=== PATIENT | female | born 1980 | race Caucasian/White ===

== ENCOUNTER 2016-12-08 08:57 | Emergency (ER) | payer OTHER ==
[2016-12-08] MEDS ORDERED: MORPHINE SULFATE 10 MG/ML SYRINGE IM STA (09:34)
--- NOTE | 2016-12-08 09:39 | ED ---
Back Pain HPI - General Chief Complaint: Back Pain/Injury Stated Complaint: back pain Time Seen by Provider: 12/08/16 09:07 Source: patient, RN notes reviewed Limitations: no limitations - History of Present Illness Initial Comments: Patient is a 36-year-old female since emergency room for evaluation of back pain. Patient states that she was working out about 3 days ago and slipped down about 20 wooden stairs in her apartment. Patient states she's been having increased back pain ever since. Patient states she has pain radiating from her neck always to her lower back. Patient states the pain is worse on the right side than her left. Patient also states having bilateral rib pain. Patient states she has pain when she takes a deep breath. Patient denies head trauma, loss of consciousness, nausea or vomiting. Patient denies numbness or tingling in extremities, saddle anesthesia or urinary or fecal incontinence. Patient denies any other injuries during incident. Patient states she's been taking ibuprofen and Robaxin with no relief of symptoms. Patient states symptoms have not been improving so she thought she should be evaluated. - Related Data Home Medications Medication Instructions Recorded Confirmed Albuterol Inhaler [Ventolin Hfa 2 puff INHALATION RT-TID PRN 11/13/15 09/29/16 Inhaler] risperiDONE [RisperDAL] 2 mg PO HS 03/03/16 09/29/16 Mirtazapine [Remeron] 45 mg PO HS 03/10/16 09/29/16 Budesonide/Formoterol Fumarate 2 puff INHALATION BID 09/29/16 09/29/16 [Symbicort 80-4.5 Mcg Inhaler] Previous Rx's Medication Instructions Recorded Mupirocin 2% Oint [Bactroban 2% 1 applic TOPICAL TID #22 gm 09/29/16 Oint] Permethrin 5% Cream [Elimite] 1 applic TOPICAL ONCE #60 gram 09/29/16 Azithromycin [Zithromax Z-pack] 250 mg PO DIRECTED #6 tab 12/08/16 HYDROcodone/APAP 5-325MG [[place] 1 tab PO Q6HR PRN #15 tab 12/08/16 5-325] Allergies Allergy/AdvReac Type Severity Reaction Status Date / Time naproxen [From Naprosyn] AdvReac Vomiting Verified 12/08/16 09:01 Review of Systems ROS Statement: Those systems with pertinent positive or pertinent negative responses have been documented in the HPI. ROS Other: All systems not noted in ROS Statement are negative. 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 insomnia anxiety panic disorder History of Any Multi-Drug Resistant Organisms: None Reported Past Surgical History: Breast Surgery, Tonsillectomy, Tubal Ligation Additional Past Surgical History / Comment(s): CYSTS REMOVED FROM LEFT OVARY, LAPROSCOPIC ectopic Past Anesthesia/Blood Transfusion Reactions: No Reported Reaction Past Psychological History: Anxiety, Bipolar, Depression, Panic Disorder Smoking Status: Current every day smoker Past Alcohol Use History: None Reported Past Drug Use History: None Reported Additional Drug Use History / Comment(s): Patient states that she uses MJ once every three months. - Past Family History Mother Additional Family Medical History / Comment(s): Depression. Father Additional Family Medical History / Comment(s): Alcoholism General Exam - General Exam Comments Initial Comments: Sitting in exam room, no acute distress. Limitations: no limitations General appearance: alert, in no apparent distress Head exam: Present: atraumatic, normocephalic, normal inspection Eye exam: Present: normal appearance ENT exam: Present: normal exam Neck exam: Present: normal inspection, tenderness (Cervical spine tenderness on palpation), full ROM Respiratory exam: Present: normal lung sounds bilaterally, chest wall tenderness (Pain on palpating over right and left lateral ribs). Absent: respiratory distress Cardiovascular Exam: Present: regular rate, normal rhythm, normal heart sounds Extremities exam: Present: normal inspection, full ROM, normal capillary refill. Absent: tenderness Back exam: Present: normal inspection, full ROM (Limited flexion and extension secondary to pain), paraspinal tenderness (Bilateral paraspinal tenderness on palpating from thoracic spine all the way to the lumbosacral area.), vertebral tenderness (Thoracic spine tenderness on palpation) Neurological exam: Present: alert, oriented X3, CN II-XII intact Psychiatric exam: Present: normal affect, normal mood Skin exam: Present: warm, dry, intact, normal color. Absent: rash Course Vital Signs 12/08/16 08:59 Temperature 97.8 F Pulse Rate 95 Respiratory 20 Rate Blood Pressure 131/75 O2 Sat by Pulse 98 Oximetry Medical Decision Making - Medical Decision Making Patient is a 36-year-old female presents emergency room for evaluation of back pain from fall. X-rays of cervical, thoracic and lumbosacral spine show no acute findings. Patient also complaining of bilateral rib pain. Chest x-ray shows evidence of left upper lobe pneumonia. Patient was placed on antibiotics and advised to follow-up with her primary care provider for reevaluation. Agreed to send patient home with pain medications. Advised patient to return for worsening symptoms. Patient states she understands everything that was discussed with her. Case discussed with Dr. Morrison. - Radiology Data Radiology results: report reviewed, image reviewed Disposition Clinical Impression: Left upper lobe pneumonia, Back pain, Fall Disposition: HOME SELF-CARE Condition: Good Instructions: Pneumonia (ED), Low Back Strain (ED) Additional Instructions: Continue taking her home medications as needed. Warm moist heat. Take [place] as needed for severe pain. Take antibiotics as directed. Please follow up with primary care provider in 24-48 hours for reevaluation of pneumonia and back pain. If any new symptom arises, symptoms worsen or fever develops, return to ER as soon as possible. Prescriptions: HYDROcodone/APAP 5-325MG [[place] 5-325] 1 tab PO Q6HR PRN #15 tab PRN Reason: Pain Azithromycin [Zithromax Z-pack] 250 mg PO DIRECTED #6 tab Referrals: None,Stated [Primary Care Provider] - 1-2 days Time of Disposition: 10:57
--- NOTE | 2016-12-08 10:37 | XR ---
EXAMINATION TYPE: PA chest and bilateral rib series DATE OF EXAM: 12/08/2016 10:25 AM COMPARISON: 10/19/2015 HISTORY: 36-year-old female with pain after fall 3 days ago FINDINGS: The cardiomediastinal silhouette, aorta, and pulmonary vasculature are within normal limits. There is focal airspace opacity in the left upper lobe. No pneumothorax or pleural effusion. No displaced rib fractures seen. Bilateral breast prostheses are present. IMPRESSION: 1. Focal infiltrate left upper lobe. Correlate for pneumonia. Follow-up after treatment to assess for clearance. 2. No displaced rib fracture seen. 3. Bilateral breast prostheses.
--- NOTE | 2016-12-08 10:41 | XR ---
EXAMINATION TYPE: 5 view cervical spine. 3 views thoracic spine. 5 views lumbar spine. DATE OF EXAM: 12/08/2016 10:24 AM COMPARISON: NONE HISTORY: 36-year-old female with pain after fall down stairs 3 days ago. FINDINGS: Cervical spine: There is straightening of the normal cervical lordosis. No predental space widening or prevertebral s oft tissue swelling. Normal alignment of the cervical spine. No bony spondylotic neuroforaminal narro wing on either side. No acute fracture seen. Normal odontoid view. Thoracic spine: 12 rib-bearing thoracic vertebral bodies. All pedicles are visualized. Vertebral body heights are pre served and alignment is maintained. Lumbar spine: 5 lumbar type vertebral bodies. No pars interarticularis defect seen. Small superior endplate Schmorl 's node of L2 vertebral body. Otherwise, vertebral body heights are preserved and alignment is mainta ined. IMPRESSION: 1. Cervical spine: Straightening of the normal cervical lordosis could be positional or secondary to muscle spasm. No acute osseous abnormality seen. 2. Thoracic spine: No vertebral compression collapse or malalignment. 3. Lumbar spine: Small Schmorl's node of the superior L2 endplate is of indeterminate age but probabl y chronic. Correlate for any pain at this level. Otherwise, no vertebral compression collapse or alon lignment.
[2016-12-08 11:08] VITALS: BP 117/67; PULSE 80; RESP 16; TEMP 97.6
== END 2016-12-08 11:07 | disposition home or self-care (01) ==
LOC: EC 08:57
DX: S39.012A Strain of muscle, fascia and tendon of lower back, initial encounter (principal); J18.9 Pneumonia, unspecified organism; M54.2 Cervicalgia; R07.81 Pleurodynia; M54.6 Pain in thoracic spine; J44.9 Chronic obstructive pulmonary disease, unspecified; J45.909 Unspecified asthma, uncomplicated; F41.0 Panic disorder [episodic paroxysmal anxiety]; F41.9 Anxiety disorder, unspecified; F31.9 Bipolar disorder, unspecified; F17.200 Nicotine dependence, unspecified, uncomplicated; Z90.89 Acquired absence of other organs; Z79.51 Long term (current) use of inhaled steroids; Z79.899 Other long term (current) drug therapy; Z88.6 Allergy status to analgesic agent; W10.9XXA Fall (on) (from) unspecified stairs and steps, initial encounter; Y92.039 Unspecified place in apartment as the place of occurrence of the external cause
CPT/HCPCS: 96372 ×2; 99283 ×2; 71111; 72072; 72050; 72110; J2270

== ENCOUNTER → 2016-12-19 | Outpatient (CLI) | payer OTHER ==
--- NOTE | 2016-12-19 20:31 | WWHP ---
DATE OF SERVICE: 12/19/2016. CHIEF COMPLAINT: Patient is here for her routine gynecologic exam. HPI: This is a 36-year-old G4, P2-0-2-2 with an LMP of 12/06/2016. She is status post tubal ligation. She says it been about 6 years since her last pelvic exam. She says she has been experiencing some hot flashes. This can occur during the day and at night. Periods have generally been about monthly but she occasionally has skipped a period once in a while. PAST MEDICAL HISTORY: COPD with asthma, seasonal allergies, migraine headaches, and history of anxiety and depression. MEDICATIONS: 1. Risperidone 3 mg daily. 2. Remeron 45 mg daily. 3. Albuterol inhaler b.i.d. 4. Azmacort b.i.d. ALLERGIES: METHOTREXATE WHICH CAUSED A RASH. SOME NSAID MEDICATIONS: CAUSED NAUSEA, BUT SHE HAS TAKEN MOTRIN WITHOUT A PROBLEM. PAST SURGICAL HISTORY: Laparoscopic tubal ligation and later laparoscopy for removal of an ectopic in 2014. Also, breast augmentation surgery in the past, removal of ovarian cysts in the past, LEEP procedure of the cervix and cryotherapy of the cervix in the past. She thinks she was less than 26 years old when she had these done. Past OB history: 2 vaginal deliveries followed by 2 ectopic pregnancies. The first was treated with methotrexate and second one was treated surgically in 2014 and she believes part of her tube was removed. 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 She has had cryotherapy and LEEP procedure of the cervix and these were done prior to the age of 26. She has no other history of STDs. SOCIAL HISTORY: She smokes about 5 cigarettes per day and this is down from 1 pack of cigarettes per day. She denies alcohol and drug use. She has been with her boyfriend for 6 years and is engaged. She lives with him. She is considered disabled for mental health problems. FAMILY HISTORY: Grandmother had ovarian and lung cancer. Grandfather had lung cancer. Father and grandmother had diabetes, grandfather had an ND. REVIEW OF SYSTEMS: Weight has been stable. She denies respiratory, cardiac, or GI problems. PHYSICAL EXAM: Blood pressure 115/81. Height 5 feet 2 inches. Weight 126 pounds. Temperature 98.1, pulse 118, this is a well-developed, well-nourished white female who is alert and oriented x3 in no acute distress. HEENT is within normal limits. NECK: Supple without mass or thyromegaly. CHEST AND LUNGS: Clear to auscultation. HEART: Tachycardia. No significant murmurs are noted. Breast exam is consistent with bilateral breast implants. There are no palpable masses or tenderness. Axillary exam is negative for adenopathy. BACK: Negative for CVA tenderness. ABDOMEN: Soft, nontender, without palpable masses. PELVIC EXAM: Normal external genitalia. Cervix and vagina reveals cervix consistent with previous LEEP procedure. There are no lesions noted. There is no unusual discharge. There is no cervical motion tenderness. The cervix is slightly sensitive upon doing the Pap smear. The uterus is midposition, nongravid size and nontender. There are no palpable adnexal masses or tenderness. Rectal exam negative for mass or tenderness. EXTREMITIES: Nontender. IMPRESSION: 1. A 36-year-old female, status post tubal ligation with unremarkable gynecologic exam. 2. Post tubal ligation ectopic pregnancies x2. This may increase her risk for future ectopic pregnancies. 3. Hot flashes with fairly regular menses. PLAN: 1. Pap smear was performed. 2. Self-breast examination was discussed. 3. Mammograms will be started at age 41. 4. Lab tests will be drawn today including CBC, TSH, and basic metabolic panel. 5. I have recommended that she quit smoking and we discussed the importance of doing this. 6. We will try to obtain the records from her ectopic surgery in 2015. We will see if anything was done to help prevent future ectopic pregnancies. 7. She will return in one year.
== END | disposition home or self-care (01) ==
LOC: WWCWWP 11:13
PROVIDERS: ATTEND Obstetrics & Gynecology

== ENCOUNTER → 2016-12-28 | Outpatient (CLI) | payer OTHER ==
[2016-12-28 09:37] LABS: Basophils % (A) 1 %; CH 32.4; CHCM 33.2; Eosinophils # (A) 0.3 k/uL (0-0.7); Eosinophils % (A) 3 %; HCT 35.4 % (34.0-46.0); HGB 11.8 gm/dL (11.4-16.0); Luc # (Auto) 0.16; Luc % (Auto) 2; Lymphocytes # (A) 2.5 k/uL (1.0-4.8); Lymphocytes % (A) 29 %; MCH 32.7 pg (25.0-35.0); MCHC 33.4 g/dL (31.0-37.0); MCV 97.9 fL (80.0-100.0); Mean Platelet Volume 6.4; Monocytes # (A) 0.6 k/uL (0-1.0); Monocytes % (A) 7 %; Neutrophils % (A) 59 %; RBC 3.62 m/uL (3.80-5.40); RDW 11.9 % (11.5-15.5); WBC 8.6 k/uL (3.8-10.6)
[2016-12-28 09:46] LABS: Anion Gap 8 mmol/L; Blood Urea Nitrogen 5 mg/dL (7-17); Calcium 8.6 mg/dL (8.4-10.2); Carbon Dioxide 28 mmol/L (22-30); Chloride 105 mmol/L (98-107); Glucose 62 mg/dL (74-99); Non-African American GFR(MDRD) >60 (>60 ml/min/1.73 sqM); Potassium 3.2 mmol/L (3.5-5.1); Sodium 141 mmol/L (137-145)
== END | disposition home or self-care (01) ==
LOC: LABWHC1 08:55
PROVIDERS: ATTEND Obstetrics & Gynecology
DX: Z00.00 Encounter for general adult medical examination without abnormal findings (principal)
CPT/HCPCS: 36415; 80048; 84443; 85025

== ENCOUNTER 2017-03-10 09:37 | Emergency (ER) | payer OTHER ==
[2017-03-10] MEDS ORDERED: HYDROcodone/APAP 5-325MG 1 EACH TAB PO STA (10:43)
--- NOTE | 2017-03-10 10:48 | ED ---
Back Pain HPI - General Chief Complaint: Back Pain/Injury Stated Complaint: BACK PAIN X 4 DAYS, RT FOOT PAIN, POSS FB Time Seen by Provider: 03/10/17 10:38 Source: patient, RN notes reviewed Mode of arrival: ambulatory Limitations: no limitations - History of Present Illness Initial Comments: 36-year-old female presented emergency department for chronic low back pain. Patient states she just had increased back pain with no injury recently. Patient denies abdominal pain including nausea vomiting diarrhea constipation. Patient states she was diagnosed with referral neuropathy a Dr. Rodríguez supple years ago. Patient has not seen him in over 5 years. Patient states that she has not had any recent narcotic pain medication. Patient states she has no bowel bladder incontinence or retention. Denies any saddle anesthesias, dysuria , hematuria or lower extremity weakness. - Related Data Home Medications Medication Instructions Recorded Confirmed Albuterol Inhaler [Ventolin Hfa 2 puff INHALATION RT-TID PRN 11/13/15 03/10/17 Inhaler] Mirtazapine [Remeron] 45 mg PO HS 03/10/16 03/10/17 Budesonide/Formoterol Fumarate 2 puff INHALATION RT-BID 09/29/16 03/10/17 [Symbicort 80-4.5 Mcg Inhaler] Albuterol Nebulized [Ventolin 2.5 mg INHALATION RT-Q4H PRN 03/10/17 03/10/17 Nebulized] Methocarbamol [Robaxin] 500 mg PO QID PRN 03/10/17 03/10/17 risperiDONE 3 mg PO HS 03/10/17 03/10/17 Previous Rx's Medication Instructions Recorded Hydrocodone/Acetaminophen [[place] 1 tab PO Q6HR PRN #15 tab 03/10/17 5-325] Allergies Allergy/AdvReac Type Severity Reaction Status Date / Time naproxen [From Naprosyn] AdvReac Vomiting Verified 03/10/17 10:31 Review of Systems ROS Statement: Those systems with pertinent positive or pertinent negative responses have been documented in the HPI. ROS Other: All systems not noted in ROS Statement are negative. 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 insomnia anxiety panic disorder History of Any Multi-Drug Resistant Organisms: None Reported Past Surgical History: Breast Surgery, Tonsillectomy, Tubal Ligation Additional Past Surgical History / Comment(s): CYSTS REMOVED FROM LEFT OVARY, LAPROSCOPIC ectopic Past Anesthesia/Blood Transfusion Reactions: No Reported Reaction Past Psychological History: Anxiety, Bipolar, Depression, Panic Disorder Smoking Status: Current every day smoker Past Alcohol Use History: None Reported Past Drug Use History: None Reported Additional Drug Use History / Comment(s): Patient states that she uses MJ once every three months. - Past Family History Mother Additional Family Medical History / Comment(s): Depression. Father Additional Family Medical History / Comment(s): Alcoholism General Exam Limitations: no limitations General appearance: alert, in no apparent distress Head exam: Present: atraumatic, normocephalic, normal inspection Respiratory exam: Present: normal lung sounds bilaterally. Absent: respiratory distress, wheezes, rales, rhonchi, stridor Cardiovascular Exam: Present: regular rate, normal rhythm, normal heart sounds. Absent: systolic murmur, diastolic murmur, rubs, gallop, clicks GI/Abdominal exam: Present: soft, normal bowel sounds. Absent: distended, tenderness, guarding, rebound, rigid Extremities exam: Present: other (Lower extremity strength equal bilaterally, neurovascular intact, pedal pulses +2 no discoloration normal warmth normal color) Back exam: Present: full ROM, tenderness (Mild tenderness to lumbar paraspinals) , paraspinal tenderness, other (Pain with right straight leg raise). Absent: vertebral tenderness Neurological exam: Present: alert, oriented X3, CN II-XII intact, reflexes normal. Absent: motor sensory deficit Course Vital Signs 03/10/17 09:50 Temperature 97.9 F Pulse Rate 92 Respiratory 20 Rate Blood Pressure 133/76 O2 Sat by Pulse 100 Oximetry Medical Decision Making - Medical Decision Making 36-year-old female presented for low back pain. Patient has had chronic back pain the past. Patient has not had any narcotic pain medications filled per [facility] is in several months. Patient we given a short course medication patient agrees this plan she is due to see Dr. Tarango neurologist in 2 weeks. Disposition Clinical Impression: Lumbar back pain Disposition: HOME SELF-CARE Condition: Stable Instructions: Chronic Back Pain (ED) Additional Instructions: Please return to the Emergency Department if symptoms worsen or any other concerns. Prescriptions: Hydrocodone/Acetaminophen [[place] 5-325] 1 tab PO Q6HR PRN #15 tab PRN Reason: Pain Time of Disposition: 10:48
[2017-03-10 10:58] VITALS: BP 128/74; PULSE 74; RESP 17; TEMP 97.7
== END 2017-03-10 10:57 | disposition home or self-care (01) ==
LOC: EC 09:37
DX: M54.5 Low back pain (principal); J45.909 Unspecified asthma, uncomplicated; J44.9 Chronic obstructive pulmonary disease, unspecified; G47.00 Insomnia, unspecified; F31.9 Bipolar disorder, unspecified; F17.200 Nicotine dependence, unspecified, uncomplicated; Z79.899 Other long term (current) drug therapy; Z88.8 Allergy status to other drugs, medicaments and biological substances; Z79.51 Long term (current) use of inhaled steroids
CPT/HCPCS: 99283

== ENCOUNTER 2017-03-27 10:05 | Emergency (ER) | payer OTHER ==
[2017-03-27 10:18] VITALS: BP 117/77; PULSE 107; RESP 16; TEMP 98
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
== END 2017-03-27 10:55 | disposition home or self-care (01) ==
LOC: EC 10:05
DX: M54.16 Radiculopathy, lumbar region (principal); G89.29 Other chronic pain; J45.909 Unspecified asthma, uncomplicated; J44.9 Chronic obstructive pulmonary disease, unspecified; Z88.6 Allergy status to analgesic agent; F41.0 Panic disorder [episodic paroxysmal anxiety]; F31.9 Bipolar disorder, unspecified; F17.200 Nicotine dependence, unspecified, uncomplicated; Z79.51 Long term (current) use of inhaled steroids; Z79.899 Other long term (current) drug therapy
CPT/HCPCS: 99283

== ENCOUNTER 2017-06-04 15:55 | Emergency (ER) | payer OTHER ==
[2017-06-04 16:01] VITALS: BP 123/87; PULSE 97; RESP 20; TEMP 97.5
[2017-06-04] MEDS ORDERED: DIAZEPAM 5 MG TAB PO STA (16:29)
[2017-06-04] MEDS ORDERED: KETOROLAC 60 MG/2 ML VIAL IM STA (16:29)
--- NOTE | 2017-06-04 16:54 | ED ---
Back Pain HPI - General Chief Complaint: Back Pain/Injury Stated Complaint: Back Pain Time Seen by Provider: 06/04/17 16:05 Source: patient Mode of arrival: ambulatory (Patient stated she walked here from home) Limitations: no limitations - History of Present Illness Initial Comments: The patient is a 36-year-old female who presents with a chief complaint of back pain with radiation to her bilateral legs. The patient states this been an on and off issue for her since 2004 yet she is not found time to contact a primary care doctor. Patient states that the pain in her back is characterized as a sharp ache, with radiation down her legs front and back. Patient says that anything she does aggravates her pain. Only alleviating factors are "strong pain medications" including [place], and pain shots. Timing has been constant over the last 4 days. Patient denies any trauma, but states she cleaned her house for 4 hours the other day. MD Complaint: back pain Onset/Timin -: days(s) Similar Symptoms Previously: Yes Place: home Radiation: left leg, right leg Severity: moderate Quality: sharp, aching Improves With: none Worsens With: movement, walking Associated Symptoms: denies other symptoms Treatments Prior to Arrival: NSAIDS, acetaminophen, prescription analgesics - Related Data Home Medications Medication Instructions Recorded Confirmed Albuterol Inhaler [Ventolin Hfa 2 puff INHALATION RT-TID PRN 11/13/15 06/04/17 Inhaler] Mirtazapine [Remeron] 45 mg PO HS 03/10/16 06/04/17 Budesonide/Formoterol Fumarate 2 puff INHALATION RT-BID 09/29/16 06/04/17 [Symbicort 80-4.5 Mcg Inhaler] Albuterol Nebulized [Ventolin 2.5 mg INHALATION RT-Q4H PRN 03/10/17 06/04/17 Nebulized] risperiDONE 3 mg PO HS 03/10/17 06/04/17 Butalb/APAP/Caff 50-325-40Mg 1 tab PO Q4H PRN 03/27/17 06/04/17 [Fioricet 50-325-40] guaiFENesin [Mucinex] 600 mg PO Q12HR PRN 06/04/17 06/04/17 Previous Rx's Medication Instructions Recorded Ibuprofen [Motrin] 800 mg PO Q6HR PRN #30 tab 06/04/17 Methocarbamol [Robaxin-750] 750 mg PO TID PRN #10 tablet 06/04/17 Allergies Allergy/AdvReac Type Severity Reaction Status Date / Time naproxen [From Naprosyn] AdvReac Vomiting Verified 06/04/17 16:18 Review of Systems ROS Statement: Those systems with pertinent positive or pertinent negative responses have been documented in the HPI. Patient denies fevers, chills, vomiting, abdominal pain, dysuria, urinary frequency, vaginal discharge, vaginal bleeding, constipation, diarrhea. Patient admits to nausea ROS Other: All systems not noted in ROS Statement are negative. 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 insomnia anxiety panic disorder History of Any Multi-Drug Resistant Organisms: None Reported Past Surgical History: Breast Surgery, Tonsillectomy, Tubal Ligation Additional Past Surgical History / Comment(s): CYSTS REMOVED FROM LEFT OVARY, LAPROSCOPIC ectopic Past Anesthesia/Blood Transfusion Reactions: No Reported Reaction Past Psychological History: Anxiety, Bipolar, Depression, Panic Disorder Smoking Status: Current every day smoker Past Alcohol Use History: None Reported Past Drug Use History: None Reported - Past Family History Mother Additional Family Medical History / Comment(s): Depression. Father Additional Family Medical History / Comment(s): Alcoholism General Exam Limitations: no limitations General appearance: alert, in no apparent distress Head exam: Present: atraumatic, normocephalic Eye exam: Present: normal appearance ENT exam: Present: normal exam, mucous membranes moist Neck exam: Present: normal inspection Respiratory exam: Present: normal lung sounds bilaterally Cardiovascular Exam: Present: regular rate, normal rhythm GI/Abdominal exam: Present: soft Rectal exam: Present: deferred Back exam: Present: normal inspection, other (Patient does not have any tenderness to palpation or percussion of the spine. Patient states that she has tenderness palpation of the paraspinal musculature in the lower lumbar region. When laid supine, patient did not exhibit pain to hip flexion to 45, only when asked if she was having pain did she scream out in pain.) Neurological exam: Present: alert, oriented X3, CN II-XII intact, normal gait, reflexes normal Psychiatric exam: Present: normal affect, agitated (Patient became very angry when I told her that I would not prescribe narcotics) Course Vital Signs 06/04/17 06/04/17 15:57 16:12 Temperature 97.5 F L Pulse Rate 97 Respiratory 20 Rate Blood Pressure 123/87 O2 Sat by Pulse 100 99 Oximetry Medical Decision Making - Medical Decision Making Patient presents with a chief complaint of back pain that has been going on intermittently since 2004. Patient is specifically asking for narcotic pain medications. I discussed with her reasons why will not be using narcotic pain medications today and the patient became extremely angry. A [facility] report was run and shows that this patient has had 8 different prescriptions written by 7 different providers including prescriptions for Tylenol 3, tramadol, [place], Cheratussin AC, promethazine with codeine, and Suboxone. I discussed with the patient that I would not be prescribing narcotic medications today and that I would provide her with first, a list of primary care providers that she can follow up with an second, prescriptions for Motrin 800, and Robaxin. 4:56 PM After patient received a dose of IM Toradol, and by mouth Valium, she became upset and walked out of the emergency department prior to being given her discharge paperwork, or prescriptions. The patient did not display any signs or symptoms of life-threatening etiologies for back pain. Nursing staff assured me that the patient would have her discharge paperwork mailed to her in order that she has resources to follow up with primary care. At this time, patient has left the emergency department without completion of service. Disposition Clinical Impression: Strain of lumbar region, Low back pain Disposition: HOME SELF-CARE Condition: Good Instructions: Chronic Back Pain (ED), Acute Low Back Pain (ED), Narcotic Abuse (ED) Prescriptions: Ibuprofen [Motrin] 800 mg PO Q6HR PRN #30 tab PRN Reason: Pain Methocarbamol [Robaxin-750] 750 mg PO TID PRN #10 tablet PRN Reason: Pain Referrals: Tiffany Watt MD [STAFF PHYSICIAN] - 1-2 days Rosemary Cisneros MD [REFERRING] - 1-2 days
== END 2017-06-04 16:57 | disposition home or self-care (01) ==
LOC: EC 15:55
DX: S39.012A Strain of muscle, fascia and tendon of lower back, initial encounter (principal); F41.9 Anxiety disorder, unspecified; F31.9 Bipolar disorder, unspecified; J44.9 Chronic obstructive pulmonary disease, unspecified; J45.909 Unspecified asthma, uncomplicated; F17.200 Nicotine dependence, unspecified, uncomplicated; Z79.51 Long term (current) use of inhaled steroids; Z79.899 Other long term (current) drug therapy; Z88.6 Allergy status to analgesic agent; X58.XXXA Exposure to other specified factors, initial encounter
CPT/HCPCS: 99283; 96372; J1885

== ENCOUNTER 2023-10-24 08:44 | Day surgery (SDC) | payer OTHER ==
[2023-10-23 09:37] VITALS: BMI 26.0
[2023-10-24] MEDS: LACTATED RINGERS 1,000 ML IV SCH ×2 (09:13→10:16)
[2023-10-24 09:14] VITALS: TEMP 97.5
--- NOTE | 2023-10-24 10:01 | P.GSHP ---
History of Present Illness H&P Date: 10/24/23 CHIEF COMPLAINT: GERD and colon screen HISTORY OF PRESENT ILLNESS: The patient is a 43-year-old female who presents with gastroesophageal reflux disease and need for colon screen. Upper and lower endoscopy were offered for further evaluation and management. PAST MEDICAL HISTORY: Please see list. PAST SURGICAL HISTORY: Please see list. MEDICATIONS: Please see list. ALLERGIES: Please see list. SOCIAL HISTORY: No illicit drug use FAMILY HISTORY: No reports of Crohn disease or ulcerative colitis. REVIEW OF ORGAN SYSTEMS: CONSTITUTIONAL: No reports of fevers or chills. GI: Denies any blood in stools or constipation. PHYSICAL EXAM: VITAL SIGNS: Stable GENERAL: Well-developed pleasant in no acute distress. HEENT: No scleral icterus. Extraocular movements grossly intact. Moist buccal mucosa. NECK: Supple without lymphadenopathy. CHEST: Unlabored respirations. Equal bilateral excursions. CARDIOVASCULAR: Regular rate and rhythm. Distal 2+ pulses. ABDOMEN: Soft, nondistended. MUSCULOSKELETAL: No clubbing, cyanosis, or edema. ASSESSMENT: 1. Gastroesophageal reflux disease 2. Colon screen. PLAN: 1. 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 N/V FOR A COUPLE OF HOURS WHEN WAKING UP, insomnia History of Any Multi-Drug Resistant Organisms: None Reported Past Surgical History: Breast Surgery, Hysterectomy, Tonsillectomy, Tubal Ligation Additional Past Surgical History / Comment(s): CYSTS REMOVED FROM LEFT OVARY, LAPROSCOPIC ectopic SX, BREAST AUGMENTATION, EGD/COLONOSCOPY Past Anesthesia/Blood Transfusion Reactions: No Reported Reaction Additional Past Anesthesia/Blood Transfusion Reaction / Comment(s): COMES OUT OF ANESTHESIA SHAKING AND VERY EMOTIONAL Smoking Status: Current every day smoker - Past Family History Mother Additional Family Medical History / Comment(s): Depression. Father Additional Family Medical History / Comment(s): Alcoholism Medications and Allergies Home Medications Medication Instructions Recorded Confirmed Type Albuterol Inhaler [Ventolin Hfa 2 puff INHALATION RT-QID PRN 11/13/15 10/23/23 History Inhaler] Ergocalciferol [Vitamin D2 (1250 1,250 mcg PO WEEKLY 10/23/23 10/23/23 History Mcg = 99420 Iu)] Mirtazapine 30 mg PO HS 10/23/23 10/23/23 History Ondansetron [Zofran] 4 mg PO TID 10/23/23 10/24/23 History Pantoprazole [Protonix] 40 mg PO DAILY 10/23/23 10/23/23 History Sertraline [Zoloft] 100 mg PO DAILY 10/23/23 10/23/23 History cloNIDine HCL [Catapres] 0.3 mg PO TID 10/23/23 10/23/23 History risperiDONE 2 mg PO HS 10/23/23 10/23/23 History Allergies Allergy/AdvReac Type Severity Reaction Status Date / Time gabapentin AdvReac SEIZURE Verified 10/24/23 09:00 ibuprofen AdvReac Abdominal Verified 10/24/23 09:00 Pain naproxen [From Naprosyn] AdvReac Vomiting Verified 10/24/23 09:00 Surgical - Exam Vital Signs Temp Pulse Resp BP Pulse Ox 97.5 F L 77 16 88/53 98 10/24/23 09:07 10/24/23 09:07 10/24/23 09:07 10/24/23 09:07 10/24/23 09:07
[2023-10-24] MEDS ORDERED: LIDOCAINE 1% INJ 10MG/ML (20 ML MDV) ONE (10:18)
[2023-10-24] MEDS ORDERED: PROPOFOL 10 MG/ML 20 ML VIAL IV ONE (10:18)
--- NOTE | 2023-10-24 10:29 | P.PCN ---
Date of Procedure: 10/24/23 Description of Procedure: PREOPERATIVE DIAGNOSIS: GI bleed Hematemesis Gastroesophageal reflux disease. POSTOPERATIVE DIAGNOSIS: Gastroesophageal reflux disease. Gastritis. OPERATION: Esophagogastroduodenoscopy with biopsies along the esophagus, antrum and duodenum SURGEON: Zuleika Simon MD ANESTHESIA: MAC. INDICATIONS: The patient is a 43-year-old female who presents with reflux disease. Benefits and risks of the procedure were described. Informed consent was obtained. DESCRIPTION: The patient was brought into the endoscopy suite and laid in the left lateral decubitus position. An Olympus gastroscope was passed along the posterior oropharynx down to the distal esophagus where the squamocolumnar junction was encountered at 40 cm from the incisors. The stomach was entered and no bile reflux was found. Additional findings are listed below. Biopsies with cold forceps were obtained of the antrum. The first through third portion of the duodenum was examined. Retroflexion of the scope confirmed Hill grade 3 lower esophageal valve. The squamocolumnar junction demonstrated LA grade B erosive esophagitis. The stomach was desufflated. The patient tolerated the procedure well. FINDINGS: Squamocolumnar junction 40 cm from the incisors. Diaphragmatic hiatus at 40 cm. Hill grade 3 lower esophageal valve. LA grade B erosive esophagitis. Biopsies obtained. Biopsies obtained of the duodenum. Chronic gastritis with biopsies obtained. RECOMMENDATIONS: Upper endoscopy as needed.
--- NOTE | 2023-10-24 10:45 | P.PCN ---
Date of Procedure: 10/24/23 Description of Procedure: PREOPERATIVE DIAGNOSIS: Gastrointestinal bleeding with hematochezia POSTOPERATIVE DIAGNOSIS: Severe constipation Colitis OPERATION: Colonoscopy to the midtransverse colon SURGEON: Zuleika Simon MD. ANESTHESIA: MAC. INDICATIONS: The patient is a 43-year-old female who presents with gastrointestinal bleeding and bright red blood per rectum. Benefits and risks were described and informed consent was obtained. DESCRIPTION OF PROCEDURE: The patient had undergone attempted Golytely prep 2 L. The patient had been brought into the operating room and laid in the left lateral decubitus position. After adequate intravenous sedation, the rectum was examined with 2% lidocaine jelly. External hemorrhoids identified. The rectal tone was within normal limits. An Olympus colonoscope was gently advanced to the cecum with clear visualization of the ileocecal valve including appendiceal orifice. The prep was poor with semisolid stool to the transverse colon. Areas of focal colitis was found without active. Retroflexion of the scope demonstrated grade 2 internal hemorrhoids with recent inflammation. The colon was desufflated. The patient had tolerated the procedure well. Withdrawal time was over 6 minutes. FINDINGS: Aronchick preparation quality scale 4+ (1-5) Internal hemorrhoids, grade 2 External hemorrhoids, grade 2 Nondiagnostic colonoscopy due to poor prep and semisolid stool No thrombosed hemorrhoid identified. Colitis at rectum and sigmoid colon RECOMMENDATIONS: 1. Recommend three-day colonoscopy prep for nondiagnostic colonoscopy Plan - Discharge Summary Discharge Rx Participant: No New Discharge Prescriptions: Continue Albuterol Inhaler [Ventolin Hfa Inhaler] 2 puff INHALATION RT-QID PRN PRN Reason: Shortness Of Breath Or Wheezing cloNIDine HCL [Catapres] 0.3 mg PO TID Mirtazapine 30 mg PO HS Ondansetron [Zofran] 4 mg PO TID Pantoprazole [Protonix] 40 mg PO DAILY risperiDONE 2 mg PO HS Sertraline [Zoloft] 100 mg PO DAILY Ergocalciferol [Vitamin D2 (1250 Mcg = 29991 Iu)] 1,250 mcg PO WEEKLY Discharge Medication List Albuterol Inhaler [Ventolin Hfa Inhaler] 2 puff INHALATION RT-QID PRN 11/13/15 [History] Ergocalciferol [Vitamin D2 (1250 Mcg = 82677 Iu)] 1,250 mcg PO WEEKLY 10/23/23 [History] Mirtazapine 30 mg PO HS 10/23/23 [History] Ondansetron [Zofran] 4 mg PO TID 10/23/23 [History] Pantoprazole [Protonix] 40 mg PO DAILY 10/23/23 [History] Sertraline [Zoloft] 100 mg PO DAILY 10/23/23 [History] cloNIDine HCL [Catapres] 0.3 mg PO TID 10/23/23 [History] risperiDONE 2 mg PO HS 10/23/23 [History] Follow up Appointment(s)/Referral(s): Zuleika Simon MD [STAFF PHYSICIAN] - 11/12/23 11:00 am Patient Instructions/Handouts: Constipation (DC), Colitis (ED), Rectal Bleeding (DC), Gastritis (DC) Activity/Diet/Wound Care/Special Instructions: Repeat colonoscopy after 3 day prep Discharge Disposition: HOME SELF-CARE
[2023-10-24 11:09] VITALS: BP 97/53; PULSE 71; RESP 16
== END 2023-10-24 11:48 | disposition home or self-care (01) ==
LOC: ORWHC2ENDO 08:44
PROVIDERS: ATTEND Surgery Plastic and Reconstructive Surgery
DX: Z12.11 Encounter for screening for malignant neoplasm of colon (principal); K31.9 Disease of stomach and duodenum, unspecified; K21.00 Gastro-esophageal reflux disease with esophagitis, without bleeding; K29.70 Gastritis, unspecified, without bleeding; K59.00 Constipation, unspecified; K52.9 Noninfective gastroenteritis and colitis, unspecified; J44.9 Chronic obstructive pulmonary disease, unspecified; J45.909 Unspecified asthma, uncomplicated; Z88.6 Allergy status to analgesic agent; Z88.8 Allergy status to other drugs, medicaments and biological substances; F41.9 Anxiety disorder, unspecified; F32.A Depression, unspecified; F41.0 Panic disorder [episodic paroxysmal anxiety]; Z79.83 Long term (current) use of bisphosphonates; F17.210 Nicotine dependence, cigarettes, uncomplicated; Z79.899 Other long term (current) drug therapy
CPT/HCPCS: 88305; 45378; 43239; J2001; J2704